=== PATIENT | female | born 1950 | race Caucasian/White ===

== ENCOUNTER → 2025-03-24 | Outpatient (CLI) | payer MEDICARE, BC, SELFPAY ==
--- NOTE | 2025-03-24 10:13 | XR_ITS ---
Examination: Hand, left 3 views Technique: Hand AP, oblique, lateral 3 views Date and time of exam: March 24, 2025, 1017 hours INDICATIONS: Left hand pain beginning 3 weeks ago. FINDINGS: Prominent osteopenia Minor cystic change at the base of the distal phalanx on, 6 mm Mild diffuse osteoarthritis No cortical bone destruction No fracture IMPRESSION: Mild osteoarthritis Benign-appearing cystic change in the distal phalanx, recommend 3 month follow-up coned views first digit
== END | disposition home or self-care (01) ==
PROVIDERS: Referring Provider Nurse Practitioner Family; Visit Provider Nurse Practitioner Family
DX: M19.042 Primary osteoarthritis, left hand (principal); M25.842 Other specified joint disorders, left hand
CPT/HCPCS: 73130

== ENCOUNTER → 2025-04-25 | Outpatient (CLI) | payer MEDICARE, BC, SELFPAY ==
--- NOTE | 2025-04-25 12:00 | XR_ITS ---
Examination: Bone densitometry Date and time of exam: April 25, 2025, 1219 hours INDICATIONS: Menopause age 58, family history grandmother osteoporosis, vitamin D and calcium 10 years, personal history of osteoporosis Technique: Lumbar spine and hip total bone mineralization values of an calculated. Peak reference and age match control results have been displayed. Findings: Lumbar spine total bone mineralization is 0.898 gm/cm2. This is 1.4 standard deviations below peak reference. This is 1.0 standard deviations above age-matched controls. Hip total bone mineralization is 0.848 gm/cm2 This is 0.8 standard deviations below peak reference. This is 1.0 standard deviations above age-matched controls Impression: There is osteopenia based on lumbar spine measurements. There is osteopenia based on hip measurements Lumbar mineralization is increased 7.4% compared with January 28, 2023 Hip mineralization is decreased 1.3% compared with January 28, 2023
== END | disposition home or self-care (01) ==
PROVIDERS: Referring Provider Nurse Practitioner Family; Visit Provider Nurse Practitioner Family
DX: M85.89 Other specified disorders of bone density and structure, multiple sites (principal)
CPT/HCPCS: 77080

== ENCOUNTER → 2025-06-09 | Outpatient (CLI) | payer MEDICARE, BC, SELFPAY ==
--- NOTE | 2025-06-09 10:06 | XR_ITS ---
Examination: Right hip AP, lateral, AP pelvis 3 views Technique: Hip AP lateral, AP pelvis, 3 views Exam date and time: June 09, 2025, 1017 hours INDICATION: Right hip pain beginning 2 months ago. FINDINGS: No right hip fracture or hip dislocation Left hip bones of the pelvis intact Minimal narrowing right hip joint IMPRESSION: Minimal narrowing right hip joint.
== END | disposition home or self-care (01) ==
LOC: CDIM 10:00
PROVIDERS: PCP Family Medicine; Referring Provider Family Medicine; Visit Provider Family Medicine
DX: M25.851 Other specified joint disorders, right hip (principal)
CPT/HCPCS: 73502